=== PATIENT | male | born 1955 | race Caucasian/White ===

== ENCOUNTER 2017-03-05 10:23 | Day surgery (SDC) | payer OTHER ==
[2017-03-04 13:26] VITALS: BMI 24.1
[2017-03-05] VITALS (20 sets, daily range): BP systolic 109–130; BP diastolic 48–77; PULSE 50–55; RESP 11–16; Ht 175.3 cm; Wt 73.4 kg
[~2017-03-05] VITALS: Ht 175.3 cm; Wt 73.4 kg
[~2017-03-05 10:23] MED LIST: FLUO20CA38 PO; FLUT9.9S NASAL; NICO-512 TRANSDERM; TRAZ100T15 PO
[2017-03-05] MEDS ORDERED: CEFAZOLIN 2 GM/50 ML (PMX) 50 ML IVPB ONE (10:30)
[2017-03-05] MEDS ORDERED: FENTAnyl 50 MCG/ML VIAL ONE (11:56)
[2017-03-05] MEDS ORDERED: CEFAZOLIN 1 GM INJ ONE (11:56)
[2017-03-05] MEDS ORDERED: PROPOFOL 20 ML ONE (11:56)
[2017-03-05] MEDS ORDERED: MIDAZOLAM 1 MG/ML 2 ML INJ ONE ×2 (11:56→12:56)
[2017-03-05] MEDS ORDERED: LIDOCAINE 2% (SDV) 5 ML INJ ONE (11:56)
[2017-03-05] MEDS ORDERED: HYDROmorphONE (0.2 MG/ML) 10ML SYG IV PRN ×2 (12:00)
[2017-03-05] MEDS ORDERED: PROCHLORPERAZINE 10 MG INJ IV PRN (12:00)
[2017-03-05] MEDS ORDERED: ONDANSETRON 4 MG INJ IV PRN (12:00)
[2017-03-05] MEDS ORDERED: OXYCODONE/ACETAMINOPHEN (5/325) TAB PO PRN ×2 (12:00)
[2017-03-05] MEDS ORDERED: FENTAnyl 50 MCG/ML VIAL IV PRN (12:00)
[2017-03-05] MEDS ORDERED: MEPERIDINE 25 MG INJ IV PRN (12:00)
[2017-03-05] MEDS ORDERED: DIPHENHYDRAMINE 50 MG INJ IV PRN (12:00)
--- NOTE | 2017-03-05 12:37 | HPN ---
Date/Time of Note Date/Time of Note DATE: 03/05/17 TIME: 12:36 Interval H&P Admission Note Pt. seen H&P reviewed: No system changes SERVANDO HENAO MD Mar 05, 2017 12:37
[2017-03-05] MEDS ORDERED: NS IS SCH (13:00)
[2017-03-05] MEDS ORDERED: MITOMYCIN IS SCH (13:00)
[2017-03-05] MEDS ORDERED: HYDROCODONE/APAP (5/325) TAB PO PRN (13:00)
[2017-03-05] MEDS ORDERED: ONDANSETRON 4 MG INJ ONE (13:09)
[2017-03-05] MEDS ORDERED: EPHEDrine SULFATE 50 MG/5 ML SYG ONE (13:09)
[2017-03-05] MEDS ORDERED: METOCLOPRAMIDE 10 MG INJ ONE (13:09)
[2017-03-05] MEDS ORDERED: HYDROmorphONE 2 MG/ML SYG ONE (13:12)
[2017-03-05] MEDS ORDERED: KETAMINE 500 MG INJ ONE (13:32)
--- NOTE | 2017-03-05 14:31 | OPR ---
DATE OF OPERATION: 03/05/2017 PREOPERATIVE DIAGNOSIS: Bladder tumor at the anterior bladder wall. POSTOPERATIVE DIAGNOSIS: Bladder tumor at the anterior bladder wall. OPERATION PERFORMED: Cystoscopy and transurethral resection of anterior bladder tumor and instillat ion of 40 mg of mitomycin C and 40 mL of normal saline. TECHNIQUE: The patient was brought to the operating room. General anesthesia was induced. The pat ient was positioned in the lithotomy position. The genital area was prepped and draped in the usual sterile manner. The patient was given 2 grams of Ancef at the start of the procedure. A time-out was done. The patient was identified by his name, date, and the procedure. Then a #22 Indonesian cystoscope sheath was introduced under direct vision through the penile urethra, all the way to the bladder. Once in the bladder, the bladder was inspected thoroughly with the 30-degree and the 70-d egree lenses, and the only tumor that he had was anteriorly between the air bubble and the bladder n kelly. Then the rigid biopsy forceps was used and the tumor was removed. Then using the round tip Bu gbee electrode, the base as well as the edges of the tumor were electrocoagulated. Good hemostasis was obtained. Then the bladder was emptied and then I inserted a 16-Indonesian Wilson catheter, inflated the balloon with 10 mL of sterile water. I hand irrigated the bladder with sterile water to make s ure there was no blood or blood clots, and the ureter return was perfectly clear. Then I put a clam p on the catheter and put the 60-mL catheter tip syringe and then through that syringe I instilled t he mitomycin C. I opened the clamp and I put all the mitomycin in the bladder, then I reclamped the catheter and disposed of both syringes into the hazardous waste bag. Then I also connected the Fole y to a drainage bag, but kept the Wilson catheter clamped, so later on the nurses could unclamp the c atheter, dispose of the clamp and the hazardous waste, and also remove the Wilson catheter and the dr torres bag, and dispose both of them in the hazardous waste. The patient was then transferred to [facility] recovery room in stable and satisfactory condition, where he will be turned on each side for 15 mi nutes for the next 2 hours. Dictated By: SERVANDO HENRIQUEZ/LEILA Conf#: [id number] DID#: [id number]
== END 2017-03-05 17:40 | disposition home or self-care (01) ==
LOC: SDS 10:23
PROVIDERS: ATTEND Urology
DX: C67.3 Malignant neoplasm of anterior wall of bladder (principal); F17.200 Nicotine dependence, unspecified, uncomplicated; R94.31 Abnormal electrocardiogram [ECG] [EKG]; F32.9 Major depressive disorder, single episode, unspecified
CPT/HCPCS: 52234; 87086; 88307; J0690; J1170; J2250; J2405; J2765; J3010; J9280; Z7512; Z7610

== ENCOUNTER 2017-09-03 09:59 | Day surgery (SDC) | payer OTHER ==
[~2017-09-03] VITALS: Ht 175.3 cm; Wt 77.6 kg
[2017-09-03] VITALS (12 sets, daily range): BP systolic 94–131; BP diastolic 43–75; PULSE 57–72; RESP 16–27; Ht 175.3 cm; Wt 77.6 kg
[~2017-09-03 09:59] MED LIST changes: +ATROPINE 1 MG/10 ML SYRINGE IV PRN; +CEFAZOLIN 1 GM INJ ONE; +DIPHENHYDRAMINE 50 MG INJ IV PRN; +EPHEDrine SULFATE 50 MG/5 ML SYG IV PRN; +FENTAnyl 50 MCG/ML VIAL IV PRN; -FLUT9.9S NASAL; +HYDROmorphONE (0.2 MG/ML) 10ML SYG IV PRN; +LABETALOL HCL 20MG INJ IV PRN; +MEPERIDINE 25 MG INJ IV PRN; +MIDAZOLAM 1 MG/ML 2 ML INJ IV PRN; -NICO-512 TRANSDERM; +ONDANSETRON 4 MG INJ IV PRN; +OXYCODONE/ACETAMINOPHEN (5/325) TAB PO PRN; +SUCCINYLCHOLINE CHLORIDE 100 MG/5 ML SYG IV ONE; +hydrALAzine 20 MG INJ IV PRN; +morphine (1 MG/ML) 10ML SYRINGE IV PRN
--- NOTE | 2017-09-03 11:44 | HPN ---
Date/Time of Note Date/Time of Note DATE: 09/03/17 TIME: 11:44 Interval H&P Admission Note Pt. seen H&P reviewed: No system changes SERVANDO HENAO MD Sep 03, 2017 11:44
[2017-09-03] MEDS ORDERED: IOHEXOL 300MG/ML 30 ML BTL ONE (12:14)
[2017-09-03] MEDS ORDERED: LIDOCAINE 2% (SDV) 5 ML INJ ONE (12:23)
[2017-09-03] MEDS ORDERED: GLYCOPYRROLATE 0.4 MG INJ ONE (12:23)
[2017-09-03] MEDS ORDERED: PROPOFOL 20 ML ONE (12:23)
[2017-09-03] MEDS ORDERED: ROCURONIUM 50 MG INJ ONE (12:23)
[2017-09-03] MEDS ORDERED: MIDAZOLAM 1 MG/ML 2 ML INJ ONE (12:23)
[2017-09-03] MEDS ORDERED: FENTAnyl 50 MCG/ML VIAL ONE (12:23)
[2017-09-03] MEDS ORDERED: NEOSTIGMINE 3 MG/3 ML SYRINGE ONE (12:23)
[2017-09-03] MEDS ORDERED: DEXAMETHASONE 4 MG/ML 1 ML INJ ONE (13:08)
[2017-09-03] MEDS ORDERED: ONDANSETRON 4 MG INJ ONE (13:09)
--- NOTE | 2017-09-03 13:56 | OPR ---
Date/Time of Note Date/Time of Note DATE: 09/03/17 TIME: 13:46 Operative Report Procedure Date: Sep 03, 2017 Preoperative Diagnosis History of bladder tumor, abnormal urine cytology Postoperative Diagnosis History of bladder tumor and abnormal urine cytology. Pending pathology reports Operation/Procedure Performed Cystoscopy, bilateral retrograde pyelograms, bilateral renal washings for cytology. Bladder biopsies posterior bladder wall, left lateral bladder wall, and right lateral bladder wall. Surgeon see signature line Manual Lathe Operator None Anesthesia Type: general Anesthesiologist: HORTENCIA TYLER MD Estimated Blood Loss: 0 - 10 ml's Transfusion none Specimen 1-bladder urine for cytology 2- left renal washings for cytology 3-right renal washings for cytology 4-bladder biopsy bladder base/posterior bladder wall 5-bladder biopsy left lateral wall 6-bladder biopsy right lateral wall Grafts/Implants none Complications none Pt Condition Post Procedure: stable Disposition: PACU Indications History of bladder tumor and abnormal urine cytology Procedure Description Patient was brought to the operating room, general anesthesia was induced and the patient was then positioned in the lithotomy position. He was given 2 g of Ancef IV at the start of the procedure. Timeout was done the patient was identified by his name, birthdate, and the procedure The genital area was prepped and draped in the usual sterile manner. #21 [place] sheath was inserted into the urethra and into the bladder. Urine was collected for cytology. Then cystoscopy was done. No lesions were noted and no tumors were observed. The ureteral orifices were normal in location and appearance. Then using a 8 [place]an cone-tip ureteral catheter bilateral retrograde pyelograms were done. No filling defect was noted in either collecting system right or left. Then the cone-tip was removed and a 5 [place] open ended ureteral catheter was advanced on a zip wire all the way up to the left kidney then urine was aspirated from the kidney for cytology followed by renal washing was normal saline and collecting that for cytology as well. Same procedure was done on the other side. Then the ureteral catheter was removed and 3 bladder biopsies were done as outlined in the procedure. The areas of the biopsy were all electrocoagulated and good hemostasis was obtained. The cystoscope was then removed and the patient was transferred to the recovery room in a stable and satisfactory condition SERVANDO HENAO MD Sep 03, 2017 13:56
[2017-09-03] MEDS ORDERED: HYDROCODONE/APAP (5/325) TAB PO PRN (14:00)
--- NOTE | 2017-09-04 16:22 | RADRPT ---
PROCEDURE: X-ray fluoroscopy guidance CLINICAL INDICATION: Pain TECHNIQUE: Fluoroscopic guidance was utilized for bilateral retrograde pyelogram. Fluoro time: 100.5 seconds Number of images/sequences: 18 COMPARISON: None available FINDINGS: No hydronephrosis is seen bilaterally. IMPRESSION: 1. X-ray fluoroscopic guidance, as above. RPTAT: [id number] .Edvin Rodriguez MD, Date Time Electronically viewed and signed by .Edvin Rodriguez MD, on 09/04/2017 16:21 .R/
== END 2017-09-03 16:20 | disposition home or self-care (01) ==
LOC: SDS 09:59
PROVIDERS: ATTEND Urology
DX: C67.9 Malignant neoplasm of bladder, unspecified (principal)
CPT/HCPCS: 52204; 74420; 88104; 88305; J0690; J1100; J2250; J2405; J2710; J3010; Q9967; Z7512; Z7610

== ENCOUNTER 2018-02-18 10:39 | Day surgery (SDC) | END 2018-02-18 15:20 | disposition home or self-care (01) ==

== ENCOUNTER 2018-08-25 08:08 | Day surgery (SDC) | END 2018-08-25 15:00 | disposition home or self-care (01) ==